=== PATIENT | male | born 1955 ===

== ENCOUNTER 2025-01-11 11:59 | Outpatient (RCR) | payer MEDICARE, SELFPAY | END 2025-01-11 23:59 | disposition home or self-care (01) | LOC: RPT 11:59 | PROVIDERS: ATTENDING PHYSICIAN Clinical Nurse Specialist Acute Care | DX: Z47.1 Aftercare following joint replacement surgery (principal); Z73.6 Limitation of activities due to disability; M62.81 Muscle weakness (generalized); R26.2 Difficulty in walking, not elsewhere classified; M25.562 Pain in left knee; M54.9 Dorsalgia, unspecified; R26.89 Other abnormalities of gait and mobility; Z96.652 Presence of left artificial knee joint | CPT/HCPCS: 97110; 97116; 97161; 97530 ==

== ENCOUNTER 2025-02-12 08:31 | Outpatient (RCR) | payer MEDICARE, SELFPAY | END 2025-02-12 23:59 | disposition home or self-care (01) | LOC: RPT 08:31 | PROVIDERS: ATTENDING PHYSICIAN Clinical Nurse Specialist Acute Care | DX: Z47.1 Aftercare following joint replacement surgery (principal); Z73.6 Limitation of activities due to disability; M62.81 Muscle weakness (generalized); R26.2 Difficulty in walking, not elsewhere classified; M25.562 Pain in left knee; M54.9 Dorsalgia, unspecified; R26.89 Other abnormalities of gait and mobility; Z96.652 Presence of left artificial knee joint | CPT/HCPCS: 97010; 97110; 97112; 97530 ==

== ENCOUNTER 2025-03-08 09:39 | Outpatient (RCR) | payer MEDICARE, SELFPAY | END 2025-03-08 23:59 | disposition home or self-care (01) | LOC: RPT 09:39 | PROVIDERS: ATTENDING PHYSICIAN Clinical Nurse Specialist Acute Care | DX: Z47.1 Aftercare following joint replacement surgery (principal); Z73.6 Limitation of activities due to disability; M62.81 Muscle weakness (generalized); R26.2 Difficulty in walking, not elsewhere classified; M25.562 Pain in left knee; M54.9 Dorsalgia, unspecified; R26.89 Other abnormalities of gait and mobility; Z96.652 Presence of left artificial knee joint | CPT/HCPCS: 97010; 97110; 97116; 97530 ==

== ENCOUNTER 2025-04-05 17:41 | Outpatient (RCR) | payer MEDICARE, SELFPAY | END 2025-04-05 23:59 | disposition home or self-care (01) | LOC: RPT 17:41 | PROVIDERS: ATTENDING PHYSICIAN Clinical Nurse Specialist Acute Care | DX: Z47.1 Aftercare following joint replacement surgery (principal); Z73.6 Limitation of activities due to disability; M62.81 Muscle weakness (generalized); R26.2 Difficulty in walking, not elsewhere classified; M25.562 Pain in left knee; M54.9 Dorsalgia, unspecified; R26.89 Other abnormalities of gait and mobility; Z96.652 Presence of left artificial knee joint | CPT/HCPCS: 97010; 97110; 97112; 97140; 97530 ==